=== PATIENT | female | born 1970 | race Two or more races ===

== ENCOUNTER 2024-06-02 08:18 | Outpatient (AMB) | payer OTHER, SELFPAY ==
[2024-06-02 08:46] VITALS: BP 110/72; PULSE 89; RESP 18; TEMP 36.3; O2SAT 97; BMI 38.6
--- NOTE | 2024-06-02 08:46 | PD.ORTHCLVIS ---
Vital signs 06/02/24 08:46 Height 1.57 m Height Method Stated Weight 95.765 kg Weight Measurement Method Standing Scale BMI 38.6 BP 110/72 Blood Pressure Source Automatic Cuff Blood Pressure Location Right Upper Arm Position Sitting Respiration 18 Pulse 89 Pulse Source Monitor Temp 97.3 F Temp Source Temporal Artery Scan Pulse Oximetry (%) 97 Oxygen Delivery Method Room Air Med/Allergies Allergies & Medications Allergies Unable to Assess Allergy (Verified 06/02/24 08:47) Medication Reconciliation atorvastatin 20 mg tablet 20 mg PO QDAY 06/02/24 [History Confirmed 06/02/24] dicyclomine 10 mg capsule 10 mg PO BID 06/02/24 [History Confirmed 06/02/24] furosemide 20 mg tablet 20 mg PO QDAY 06/02/24 [History Confirmed 06/02/24] lisinopril 20 mg tablet 20 mg PO QDAY 06/02/24 [History Confirmed 06/02/24] meloxicam 15 mg tablet 15 mg PO QDAY 06/02/24 [History Confirmed 06/02/24] metformin 500 mg tablet 500 mg PO BID 06/02/24 [History Confirmed 06/02/24] sertraline 150 mg capsule 150 mg PO QDAY 06/02/24 [History Confirmed 06/02/24] Subjective Visit Visit for: new patient and knee Immunization / Flu Flu Vaccine in the Last 12 Months: Yes Flu Vaccine Exclusion Criteria: Already Received History of Present Illness Chief complaint: RIGHT KNEE PAIN Date of injury / onset of symptoms: 3 YEARS Tracey is a pleasant 54-year-old female with right greater than left knee pain. This has been ongoing for several years. She has had 2 arthroscopic meniscectomies in the right and on on the left. She has no recent x-rays. She has had injections in the past with minimal relief. She has tried physical therapy and meloxicam Personal History Occupation: DENTAL HYGIENIST MOBILE COORDINATOR Red flag PMH: BMI and none Pain Pain level (0-10): 6 Pain duration: CONSTANT Pain location: inside (medial), outside (lateral) and anterior Pain quality: sharp and burning Pain timing: night, increases with activity and stairs Associated signs & symptoms: weakness and stiffness Ambulatory data Ambulatory device: none Treatments Number of previous injections: 3 Improvement with previous injections: Yes Number of Physical Therapy sessions: 3 Improvement with PT: No Improvement with NSAIDS: n/a Review of Systems Review of Systems: All systems negative unless otherwise noted in HPI. Exam Exam Patient is in no acute distress and is cooperative with the examination today. Breathing is nonlabored. In no respiratory distress. Bilateral extremities were evaluated and demonstrates sensation intact to light touch. Palpable pedal pulses are present. No significant edema is present. Bilateral hips were examined. The patient has no pain with log roll of the hips. Internal rotation to 30 degrees and external rotation to 30 degrees is painless. Negative FADIR. The left knee was examined. The left knee is in [varus] alignment. Range of motion from [0-115] degrees. Knee is stable to varus and valgus as well as AP translation with <5mm. Patient has a [negative] McMurrays. There is [no] pain with patellofemoral compression and [no] crepitus noted. The knee is [tender] to palpation [medially]. The right knee was also examined. The right knee is in [varus] alignment. Range of motion from [0-120] degrees. Knee is stable to varus and valgus as well as AP translation with <5mm. Patient has a [negative] McMurrays. There is [no] pain with patellofemoral compression and [no] crepitus noted. The knee is [tender] to palpation [medially]. Assessment and Plan Problem List (1) Degenerative arthritis of knee, bilateral: Status: Acute Plan: Patient is a pleasant 54-year-old female with bilateral knee pain and bilateral knee arthritis. We discussed nonoperative and operative options. I would like to get weightbearing x-rays to see the severity of the arthritis. She has failed conservative treatment already. We will discuss different options depending on what the x-rays show Office Procedures GNS Level of Care Nursing/Assessment Patient Status: Established Patient Nursing Assessment/Reassesment: Medication Reconciliation, Update PMH in EMR and Vital Signs Coordination of Care: Complex Care and Chronic Disease 1-5, Education Complex Pt/Fam, Consent,records obtained, informed consent, Results/Orders obtained and Staff clarify orders Special Needs: Language special needs Established Patient Charge Established Patient Point Assignment: 95 Established Patient Point Charge: EP Level 3 (80-115) Past Medical History Past Medical History Have you ever been diagnosed with any of the following: Cardiology Problems Hypercholesterolemia: Yes Hypertension: Yes Respiratory Problems Smoking: No Smoking Exposure: No Endocrine Problems Diabetes Mellitus Type 2: Yes Surgical History Additional Surgical History: 3 MENISCUS REPAIR
== END 2024-06-02 09:05 | disposition home or self-care (01) ==
PROVIDERS: PCP Nurse Practitioner Family; Referring Provider Nurse Practitioner Family; Supervising Provider Orthopaedic Surgery Adult Reconstructive Orthopaedic Surgery; Visit Provider Orthopaedic Surgery Adult Reconstructive Orthopaedic Surgery
DX: M17.0 Bilateral primary osteoarthritis of knee (principal); M25.562 Pain in left knee; M25.561 Pain in right knee; E78.00 Pure hypercholesterolemia, unspecified; I10 Essential (primary) hypertension
CPT/HCPCS: 99213; G0463

== ENCOUNTER 2024-06-12 11:53 | Outpatient (AMB) | payer OTHER, SELFPAY ==
--- NOTE | 2024-06-12 11:41 | PD.ORTHTELE ---
Med/Allergies Allergies & Medications Allergies Unable to Assess Allergy (Verified 06/12/24 11:41) Medication Reconciliation atorvastatin 20 mg tablet 20 mg PO QDAY 06/02/24 [History Confirmed 06/12/24] dicyclomine 10 mg capsule 10 mg PO BID 06/02/24 [History Confirmed 06/12/24] furosemide 20 mg tablet 20 mg PO QDAY 06/02/24 [History Confirmed 06/12/24] lisinopril 20 mg tablet 20 mg PO QDAY 06/02/24 [History Confirmed 06/12/24] meloxicam 15 mg tablet 15 mg PO QDAY 06/02/24 [History Confirmed 06/12/24] metformin 500 mg tablet 500 mg PO BID 06/02/24 [History Confirmed 06/12/24] sertraline 150 mg capsule 150 mg PO QDAY 06/02/24 [History Confirmed 06/12/24] Subjective Visit Visit for: follow up visit, knee (BILATERAL) and x-rays (RESULTS) Immunization / Flu Flu Vaccine in the Last 12 Months: Yes Flu Vaccine Exclusion Criteria: Already Received History of Present Illness Chief complaint: XRAY RESULTS/BILATERAL KNEE Date of injury / onset of symptoms: 3 YEARS Tracey is a pleasant 54-year-old female with right greater than left knee pain. This has been ongoing for several years. She has had 2 arthroscopic meniscectomies in the right and on on the left. She has no recent x-rays. She has had injections in the past with minimal relief. She has tried physical therapy and meloxicam Personal History Occupation: [employer] Red flag PMH: BMI and none Pain Pain level (0-10): 6 Pain duration: CONSTANT Pain location: inside (medial) Pain quality: dull and aching Pain timing: night, increases with activity and stairs Associated signs & symptoms: none Ambulatory data Ambulatory device: none Treatments Number of previous injections: 3 Improvement with previous injections: No Number of Physical Therapy sessions: 3 Improvement with PT: No Improvement with NSAIDS: no Review of Systems Review of Systems: All systems negative unless otherwise noted in HPI. Assessment and Plan Problem List (1) Degenerative arthritis of knee, bilateral: Status: Acute Plan: Patient is a pleasant 54-year-old female with bilateral knee pain and bilateral knee arthritis. We discussed nonoperative and operative options. We discussed that she has severe bilateral knee arthritis. We recommend cortisone injections and nonoperative for now. She would like to get bilateral knee injections at the next visit Office Procedures GNS Level of Care Nursing/Assessment Patient Status: Established Patient Nursing Assessment/Reassesment: Medication Reconciliation, Update PMH in EMR and Vital Signs Coordination of Care: Complex Care and Chronic Disease 1-5, Education Complex Pt/Fam, Consent,records obtained, informed consent, 1 Ins Authorization, Results/Orders obtained and Staff clarify orders Established Patient Charge Established Patient Point Assignment: 110 Telehealth Telemed Phone/Video with patient at home & Dr,PA,INVESTOR RELATIONS MANAGER: Yes
== END 2024-06-12 11:56 | disposition home or self-care (01) ==
LOC: HODSRG 11:53
PROVIDERS: PCP Nurse Practitioner Family; Referring Provider Nurse Practitioner Family; Supervising Provider Orthopaedic Surgery Adult Reconstructive Orthopaedic Surgery; Visit Provider Orthopaedic Surgery Adult Reconstructive Orthopaedic Surgery
DX: M17.0 Bilateral primary osteoarthritis of knee (principal); M25.562 Pain in left knee; M25.561 Pain in right knee
CPT/HCPCS: 99212; G0463

== ENCOUNTER 2024-06-30 10:49 | Outpatient (AMB) | payer OTHER, SELFPAY ==
--- NOTE | 2024-06-30 11:09 | PD.ORTHCLVIS ---
Vital signs 06/30/24 11:16 Height 1.57 m Height Method Stated Weight 97.636 kg Weight Measurement Method Standing Scale BMI 39.6 BP 114/77 Blood Pressure Source Automatic Cuff Blood Pressure Location Right Upper Arm Position Sitting Respiration 18 Pulse 87 Pulse Source Monitor Temp 97.2 F Temp Source Temporal Artery Scan Pulse Oximetry (%) 96 Oxygen Delivery Method Room Air Med/Allergies Allergies & Medications Allergies Unable to Assess Allergy (Verified 06/30/24 11:17) Medication Reconciliation atorvastatin 20 mg tablet 20 mg PO QDAY 06/02/24 [History Confirmed 06/30/24] dicyclomine 10 mg capsule 10 mg PO BID 06/02/24 [History Confirmed 06/30/24] furosemide 20 mg tablet 20 mg PO QDAY 06/02/24 [History Confirmed 06/30/24] lisinopril 20 mg tablet 20 mg PO QDAY 06/02/24 [History Confirmed 06/30/24] meloxicam 15 mg tablet 15 mg PO QDAY 06/02/24 [History Confirmed 06/30/24] metformin 500 mg tablet 500 mg PO BID 06/02/24 [History Confirmed 06/30/24] sertraline 150 mg capsule 150 mg PO QDAY 06/02/24 [History Confirmed 06/30/24] Subjective Visit Visit for: follow up visit, knee (BILATERAL) and x-rays (RESULTS) Immunization / Flu Flu Vaccine in the Last 12 Months: Yes Flu Vaccine Exclusion Criteria: Already Received History of Present Illness Chief complaint: XRAY RESULTS/BILATERAL KNEE Date of injury / onset of symptoms: 3 YEARS Tracey is a pleasant 54-year-old female with right greater than left knee pain. This has been ongoing for several years. She has had 2 arthroscopic meniscectomies in the right and on on the left. She has no recent x-rays. She has had injections in the past with minimal relief. She has tried physical therapy and meloxicam Personal History Occupation: MAIL ROOM CLERK Red flag PMH: BMI and none Pain Pain level (0-10): 6 Pain duration: CONSTANT Pain location: inside (medial) Pain quality: dull and aching Pain timing: night, increases with activity and stairs Associated signs & symptoms: none Ambulatory data Ambulatory device: none Treatments Number of previous injections: 3 Improvement with previous injections: No Number of Physical Therapy sessions: 3 Improvement with PT: No Improvement with NSAIDS: no Review of Systems Review of Systems: All systems negative unless otherwise noted in HPI. Exam Exam Patient is in no acute distress and is cooperative with the examination today. Breathing is nonlabored. In no respiratory distress. Bilateral extremities were evaluated and demonstrates sensation intact to light touch. Palpable pedal pulses are present. No significant edema is present. Bilateral hips were examined. The patient has no pain with log roll of the hips. Internal rotation to 30 degrees and external rotation to 30 degrees is painless. Negative FADIR. The left knee was examined. The left knee is in [varus] alignment. Range of motion from [0-115] degrees. Knee is stable to varus and valgus as well as AP translation with <5mm. Patient has a [negative] McMurrays. There is [no] pain with patellofemoral compression and [no] crepitus noted. The knee is [tender] to palpation [medially]. The right knee was also examined. The right knee is in [varus] alignment. Range of motion from [0-120] degrees. Knee is stable to varus and valgus as well as AP translation with <5mm. Patient has a [negative] McMurrays. There is [no] pain with patellofemoral compression and [no] crepitus noted. The knee is [tender] to palpation [medially]. X-rays Demonstrate significant bilateral knee arthritis with varus deformity and osteophytes. Assessment and Plan Problem List (1) Degenerative arthritis of knee, bilateral: Status: Acute Plan: Patient is a pleasant 54-year-old female with bilateral knee pain and bilateral knee arthritis. We discussed nonoperative and operative options. We discussed that she has severe bilateral knee arthritis. She would like repeat cortisone injections of both knees which I think are reasonable Office Procedures GNS Level of Care Nursing/Assessment Patient Status: Established Patient Nursing Assessment/Reassesment: Medication Reconciliation, Update PMH in EMR and Vital Signs Coordination of Care: Complex Care and Chronic Disease 1-5, Education Complex Pt/Fam, Consent,records obtained, informed consent, Results/Orders obtained and Staff clarify orders Established Patient Charge Established Patient Point Assignment: 95 Established Patient Point Charge: EP Level 3 (80-115) Surgical Proc/IM SQ injection Major Surgical Procedure: Yes Medication Given Medication Given Medication Given: Yes Documented Dose Given: 8 Route: Infiitration Medication Given Medication Given Medication Given: Yes Documented Dose Given: 2 Route: Infiitration Office Meds Xylocaine 10 mg/mL (1 %) injection solution Performing Provider: Nikita Lorenzana MD Performing Location: [facility] Administered by: Nikita Lorenzana MD on 06/30/24 11:18 Dose Route Admin Location Dispensed Lot Number Expiration Date [facility] Treating Plant Supervisor 40 mL Infiltration 40 mL [id number] [facility] triamcinolone acetonide 40 mg/mL suspension for injection Performing Provider: Nikita Lorenzana MD Performing Location: [facility] Administered by: Nikita Lorenzana MD on 06/30/24 11:18 Dose Route Admin Location Dispensed Lot Number Expiration Date [facility] Treating Plant Supervisor 80 mg intra-articular 2 mL [id number] [employer] Past Medical History Past Medical History Have you ever been diagnosed with any of the following: Cardiology Problems Hypercholesterolemia: Yes Hypertension: Yes Respiratory Problems Smoking: No Smoking Exposure: No Endocrine Problems Diabetes Mellitus Type 2: Yes
[2024-06-30 11:16] VITALS: BP 114/77; PULSE 87; RESP 18; TEMP 36.2; O2SAT 96; BMI 39.6
== END 2024-06-30 11:21 | disposition home or self-care (01) ==
LOC: HODSRG 10:49
PROVIDERS: PCP Nurse Practitioner Family; Referring Provider Nurse Practitioner Family; Supervising Provider Orthopaedic Surgery Adult Reconstructive Orthopaedic Surgery; Visit Provider Orthopaedic Surgery Adult Reconstructive Orthopaedic Surgery
DX: M17.0 Bilateral primary osteoarthritis of knee (principal); M25.562 Pain in left knee; M25.561 Pain in right knee; I10 Essential (primary) hypertension; E78.00 Pure hypercholesterolemia, unspecified
CPT/HCPCS: 20610; 99213; J3301; J3490; G0463

== ENCOUNTER 2024-10-09 13:14 | Outpatient (AMB) | payer OTHER, SELFPAY ==
[2024-10-09 13:37] VITALS: BP 82/56; PULSE 91; RESP 18; TEMP 36.4; O2SAT 96; BMI 37.0
--- NOTE | 2024-10-09 13:37 | ORTHONT_ITS ---
Vital signs 10/09/24 13:37 Height 1.57 m Height Method Stated Weight 91.172 kg Weight Measurement Method Standing Scale BMI 37.0 BP 82/56 L Blood Pressure Source Automatic Cuff Blood Pressure Location Right Upper Arm Position Sitting Respiration 18 Pulse 91 Pulse Source Monitor Temp 97.5 F Temp Source Temporal Artery Scan Pulse Oximetry (%) 96 Oxygen Delivery Method Room Air Med/Allergies Allergies & Medications Allergies Unable to Assess Allergy (Verified 10/09/24 13:38) Medication Reconciliation atorvastatin 20 mg tablet 20 mg PO QDAY 06/02/24 [History Confirmed 10/09/24] dicyclomine 10 mg capsule 10 mg PO BID 06/02/24 [History Confirmed 10/09/24] furosemide 20 mg tablet 20 mg PO QDAY 06/02/24 [History Confirmed 10/09/24] lisinopril 20 mg tablet 20 mg PO QDAY 06/02/24 [History Confirmed 10/09/24] meloxicam 15 mg tablet 15 mg PO QDAY 06/02/24 [History Confirmed 10/09/24] metformin 500 mg tablet 500 mg PO BID 06/02/24 [History Confirmed 10/09/24] sertraline 150 mg capsule 150 mg PO QDAY 06/02/24 [History Confirmed 10/09/24] Exam Exam Patient is in no acute distress and is cooperative with the examination today. Breathing is nonlabored. In no respiratory distress. Bilateral extremities were evaluated and demonstrates sensation intact to light touch. Palpable pedal pulses are present. No significant edema is present. Bilateral hips were examined. The patient has no pain with log roll of the hips. Internal rotation to 30 degrees and external rotation to 30 degrees is painless. Negative FADIR. The left knee was examined. The left knee is in [varus] alignment. Range of motion from [0-115] degrees. Knee is stable to varus and valgus as well as AP translation with <5mm. Patient has a [negative] McMurrays. There is [no] pain with patellofemoral compression and [no] crepitus noted. The knee is [tender] to palpation [medially]. The right knee was also examined. The right knee is in [varus] alignment. Range of motion from [0-120] degrees. Knee is stable to varus and valgus as well as AP translation with <5mm. Patient has a [negative] McMurrays. There is [no] pain with patellofemoral compression and [no] crepitus noted. The knee is [tender] to palpation [medially]. X-rays Demonstrate significant bilateral knee arthritis with varus deformity and osteophytes. Assessment and Plan Problem List (1) Degenerative arthritis of knee, bilateral: Status: Acute Plan: Patient is a pleasant 54-year-old female with bilateral knee pain and bilateral knee arthritis. We discussed nonoperative and operative options. We discussed that she has severe bilateral knee arthritis. She would like repeat cortisone injections of both knees which I think are reasonable Recommend knee cortisone injections as patient would like to proceed with con servative treatment at this time. The risks and benefits of the procedure were reviewed with the patient and patient gave verbal consent to continue with the procedure. Procedure: performed by Dr. Lorenzana Using sterile technique the Bilateral knees were thoroughly prepped with alcohol, and approximately 1 cc of Kenalog 40 mg/mL and 4 cc of 1% lidocaine was injected into each knee without resistance into the medial tibial femoral joint space. The patient tolerated the procedure. Office Procedures GNS Level of Care Nursing/Assessment Patient Status: Established Patient Nursing Assessment/Reassesment: Medication Reconciliation, Update PMH in EMR and Vital Signs Coordination of Care: Complex Care and Chronic Disease 1-5, Education Complex Pt/Fam, Consent,records obtained, informed consent, Results/Orders obtained and Staff clarify orders Established Patient Charge Established Patient Point Assignment: 95 Established Patient Point Charge: EP Level 3 (80-115) Surgical Proc/IM SQ injection Major Surgical Procedure: Yes (KNEE INJECTIONS ) Medication Given Medication Given Medication Given: Yes Documented Dose Given: 8 Route: Infiitration Medication Given Medication Given Medication Given: Yes Documented Dose Given: 2 Route: Infiitration Office Meds Xylocaine 10 mg/mL (1 %) injection solution Performing Provider: Nikita Lorenzana MD Performing Location: [facility] Administered by: Nikita Lorenzana MD on 10/09/24 14:26 Dose Route Admin Location Dispensed Lot Number Expiration Date [facility] Chain Saw Driver 40 mL Infiltration 40 mL [id number] [facility] triamcinolone acetonide 40 mg/mL suspension for injection Performing Provider: Nikita Lorenzana MD Performing Location: [facility] Administered by: Nikita Lorenzana MD on 10/09/24 14:26 Dose Route Admin Location Dispensed Lot Number Expiration Date [facility] Chain Saw Driver 80 mg intra-articular 2 mL [id number] [employer] [place] Intake Visit Data Collection New Patient or Established: Established Patient (seen at [facility] within 3 years) Reason for Visit:: 3 MONTHS FOLLOW UP Seen by Clinical Staff ONLY (RN/MA): No Verbal consent obtained for Telemed visit?: No Real Estate Professor Required: No PCP or OBGYN visit in last 3 months: Yes Hx Now: No Do You Feel Safe at Home: Yes Authorities Contacted: N/A Questionairres Past Medical History Past Medical History Have you ever been diagnosed with any of the following: Cardiology Problems Hypercholesterolemia: Yes Hypertension: Yes Respiratory Problems Smoking: No Smoking Exposure: No Endocrine Problems Diabetes Mellitus Type 2: Yes Subjective Visit Visit for: follow up visit and knee Immunization / Flu Flu Vaccine in the Last 12 Months: No Flu Vaccine Exclusion Criteria: Refused by Patient and No Exclusion Criteria History of Present Illness Chief complaint: F/U ON KNEE INJECTIONS Patient is doing well with bilateral knee injections. They are working for 3 months and would want new ones today. Pain Pain level (0-10): 5 Pain duration: ALL DAY Pain location: inside (medial), outside (lateral), anterior and posterior Pain quality: sharp, dull and aching Pain timing: increases with activity Associated signs & symptoms: none Ambulatory data Ambulatory device: none Treatments Number of previous injections: 2 Improvement with previous injections: Yes Improvement with PT: No Improvement with NSAIDS: no Review of Systems Review of Systems: All systems negative unless otherwise noted in HPI.
== END 2024-10-09 14:00 | disposition home or self-care (01) ==
LOC: HODSRG 13:14
PROVIDERS: PCP Nurse Practitioner Family; Referring Provider Nurse Practitioner Family; Supervising Provider Orthopaedic Surgery Adult Reconstructive Orthopaedic Surgery; Visit Provider Orthopaedic Surgery Adult Reconstructive Orthopaedic Surgery
DX: M17.0 Bilateral primary osteoarthritis of knee (principal); E78.00 Pure hypercholesterolemia, unspecified; I10 Essential (primary) hypertension
CPT/HCPCS: 20610; 99213; J3301; J3490; G0463

== ENCOUNTER 2025-01-07 13:40 | Outpatient (AMB) | payer OTHER, SELFPAY ==
--- NOTE | 2025-01-07 14:10 | PD.ORTHCLVIS ---
Vital signs 01/07/25 14:18 Height 1.57 m Height Method Stated Weight 88.564 kg Weight Measurement Method Standing Scale BMI 35.9 BP 113/82 Blood Pressure Source Automatic Cuff Blood Pressure Location Left Upper Arm Position Sitting Respiration 19 Pulse 79 Pulse Source Monitor Temp 96.2 F L Temp Source Temporal Artery Scan Pulse Oximetry (%) 96 Oxygen Delivery Method Room Air Med/Allergies Allergies & Medications Allergies Unable to Assess Allergy (Verified 01/07/25 14:19) Medication Reconciliation atorvastatin 20 mg tablet 20 mg PO QDAY 06/02/24 [History Confirmed 01/07/25] dicyclomine 10 mg capsule 10 mg PO BID 06/02/24 [History Confirmed 01/07/25] furosemide 20 mg tablet 20 mg PO QDAY 06/02/24 [History Confirmed 01/07/25] lisinopril 20 mg tablet 20 mg PO QDAY 06/02/24 [History Confirmed 01/07/25] meloxicam 15 mg tablet 15 mg PO QDAY 06/02/24 [History Confirmed 01/07/25] metformin 500 mg tablet 500 mg PO BID 06/02/24 [History Confirmed 01/07/25] sertraline 150 mg capsule 150 mg PO QDAY 06/02/24 [History Confirmed 01/07/25] Exam Exam Patient is in no acute distress and is cooperative with the examination today. Breathing is nonlabored. In no respiratory distress. Bilateral extremities were evaluated and demonstrates sensation intact to light touch. Palpable pedal pulses are present. No significant edema is present. Bilateral hips were examined. The patient has no pain with log roll of the hips. Internal rotation to 30 degrees and external rotation to 30 degrees is painless. Negative FADIR. The left knee was examined. The left knee is in [varus] alignment. Range of motion from [0-115] degrees. Knee is stable to varus and valgus as well as AP translation with <5mm. Patient has a [negative] McMurrays. There is [no] pain with patellofemoral compression and [no] crepitus noted. The knee is [tender] to palpation [medially]. The right knee was also examined. The right knee is in [varus] alignment. Range of motion from [0-120] degrees. Knee is stable to varus and valgus as well as AP translation with <5mm. Patient has a [negative] McMurrays. There is [no] pain with patellofemoral compression and [no] crepitus noted. The knee is [tender] to palpation [medially]. X-rays Demonstrate significant bilateral knee arthritis with varus deformity and osteophytes. Assessment and Plan Problem List (1) Degenerative arthritis of knee, bilateral: Status: Acute Plan: Patient is a pleasant 54-year-old female with bilateral knee pain and bilateral knee arthritis. We discussed nonoperative and operative options. We discussed that she has severe bilateral knee arthritis. She would like repeat cortisone injections of both knees which I think are reasonable Recommend knee cortisone injections as patient would like to proceed with conservative treatment at this time. The risks and benefits of the procedure were reviewed with the patient and patient gave verbal consent to continue with the procedure. Procedure: performed by Dr. Lorenzana Using sterile technique the Bilateral knees were thoroughly prepped with alcohol, and approximately 1 cc of Kenalog 40 mg/mL and 4 cc of 1% lidocaine was injected into each knee without resistance into the medial tibial femoral joint space. The patient tolerated the procedure. Office Procedures GNS Level of Care Nursing/Assessment Patient Status: Established Patient Nursing Assessment/Reassesment: Medication Reconciliation, Update PMH in EMR and Vital Signs Coordination of Care: Complex Care and Chronic Disease 1-5, Education Complex Pt/Fam, Consent,records obtained, informed consent, Results/Orders obtained and Staff clarify orders Established Patient Charge Established Patient Point Assignment: 95 Established Patient Point Charge: EP Level 3 (80-115) Surgical Proc/IM SQ injection Major Surgical Procedure: Yes (BILATERAL KNEE INJECTION) Medication Given Medication Given Medication Given: Yes Documented Dose Given: 4 Route: Infiitration Medication Given Medication Given Medication Given: Yes Documented Dose Given: 1 Route: Infiitration Office Meds Xylocaine 10 mg/mL (1 %) injection solution Performing Provider: Nikita Lorenzana MD Performing Location: [facility] Administered by: Nikita Lorenzana MD on 01/07/25 14:19 Dose Route Admin Location Dispensed Lot Number Expiration Date [facility] [employer] 40 mL Infiltration 40 mL [id number] 11/19/27 73191-245-[facility] triamcinolone acetonide 40 mg/mL suspension for injection Performing Provider: Nikita Lorenzana MD Performing Location: [facility] Administered by: Nikita Lorenzana MD on 01/07/25 14:19 Dose Route Admin Location Dispensed Lot Number Expiration Date [facility] [employer] 80 mg intra-articular 2 mL [id number] 02/17/26 56321-819-70 ATA CASTAÑEDA [place] Intake Visit Data Collection New Patient or Established: Established Patient (seen at [facility] within 3 years) Seen by Clinical Staff ONLY (RN/MA): No PCP or OBGYN visit in last 3 months: Yes Hx Now: No Do You Feel Safe at Home: Yes Authorities Contacted: N/A Questionairres Past Medical History Past Medical History Have you ever been diagnosed with any of the following: Cardiology Problems Hypercholesterolemia: Yes Hypertension: Yes Respiratory Problems Smoking: No Smoking Exposure: No Endocrine Problems Diabetes Mellitus Type 2: Yes Subjective Visit Visit for: follow up visit and knee Immunization / Flu Flu Vaccine in the Last 12 Months: No Flu Vaccine Exclusion Criteria: Refused by Patient and No Exclusion Criteria History of Present Illness Chief complaint: F/U ON KNEE INJECTIONS Patient is doing well with bilateral knee injections. They are working for 3 months and would want new ones today. Pain Pain level (0-10): 5 Pain duration: ALL DAY Pain location: inside (medial), outside (lateral), anterior and posterior Pain quality: sharp, dull and aching Pain timing: increases with activity Associated signs & symptoms: none Ambulatory data Ambulatory device: none Treatments Number of previous injections: 2 Improvement with previous injections: Yes Improvement with PT: No Improvement with NSAIDS: no Review of Systems Review of Systems: All systems negative unless otherwise noted in HPI.
[2025-01-07 14:18] VITALS: BP 113/82; PULSE 79; RESP 19; TEMP 35.7; O2SAT 96; BMI 35.9
== END 2025-01-07 14:14 | disposition home or self-care (01) ==
LOC: HODSRG 13:40
PROVIDERS: PCP Nurse Practitioner Family; Referring Provider Nurse Practitioner Family; Supervising Provider Orthopaedic Surgery Adult Reconstructive Orthopaedic Surgery; Visit Provider Orthopaedic Surgery Adult Reconstructive Orthopaedic Surgery
DX: M17.0 Bilateral primary osteoarthritis of knee (principal); M25.562 Pain in left knee; M25.561 Pain in right knee; I10 Essential (primary) hypertension; E78.00 Pure hypercholesterolemia, unspecified; E11.9 Type 2 diabetes mellitus without complications
CPT/HCPCS: 20610; 99213; J3301; J3490; G0463

== ENCOUNTER 2025-04-22 13:12 | Outpatient (AMB) | payer OTHER, SELFPAY ==
--- NOTE | 2025-04-22 13:38 | ORTHONT_ITS ---
Vital signs 04/22/25 13:40 Height 1.57 m Height Method Stated Weight 88.139 kg Weight Measurement Method Standing Scale BMI 35.7 BP 97/63 Blood Pressure Source Automatic Cuff Blood Pressure Location Left Upper Arm Position Sitting Respiration 20 Pulse 117 H Pulse Source Monitor Temp 95.6 F L Temp Source Temporal Artery Scan Pulse Oximetry (%) 94 L Oxygen Delivery Method Room Air Med/Allergies Allergies & Medications Allergies Unable to Assess Allergy (Verified 01/07/25 14:19) Exam Exam Patient is in no acute distress and is cooperative with the examination today. Breathing is nonlabored. In no respiratory distress. Bilateral extremities were evaluated and demonstrates sensation intact to light touch. Palpable pedal pulses are present. No significant edema is present. Bilateral hips were examined. The patient has no pain with log roll of the hips. Internal rotation to 30 degrees and external rotation to 30 degrees is painless. Negative FADIR. The left knee was examined. The left knee is in [varus] alignment. Range of motion from [0-115] degrees. Knee is stable to varus and valgus as well as AP translation with <5mm. Patient has a [negative] McMurrays. There is [no] pain with patellofemoral compression and [no] crepitus noted. The knee is [tender] to palpation [medially]. The right knee was also examined. The right knee is in [varus] alignment. Range of motion from [0-120] degrees. Knee is stable to varus and valgus as well as AP translation with <5mm. Patient has a [negative] McMurrays. There is [no] pain with patellofemoral compression and [no] crepitus noted. The knee is [tender] to palpation [medially]. X-rays Demonstrate significant bilateral knee arthritis with varus deformity and osteophytes. Assessment and Plan Problem List (1) Degenerative arthritis of knee, bilateral: Status: Acute Plan: Patient is a pleasant 54-year-old female with bilateral knee pain and bilateral knee arthritis. We discussed nonoperative and operative options. We discussed that she has severe bilateral knee arthritis. She would like repeat cortisone injections of both knees which I think are reasonable Recommend knee cortisone injection as patient would like to proceed with conservative treatment at this time. The risks and benefits of the procedure were reviewed with the patient and patient gave verbal consent to continue with the procedure. Procedure: performed by Dr. Lorenzana Using sterile technique the Right knee was thoroughly prepped with alcohol, and approximately 1 cc of Depo-Medrol 80mg/mL and 4 cc of 0.2% ropivacaine was injected without resistance into the medial tibial femoral joint space. The patient tolerated the procedure. Recommend knee cortisone injection as patient would like to proceed with conservative treatment at this time. The risks and benefits of the procedure were reviewed with the patient and patient gave verbal consent to continue with the procedure. Procedure: performed by Dr. Lorenzana Using sterile technique the leftknee was thoroughly prepped with alcohol, and approximately 1 cc of Depo- Medrol 80mg/mL and 4 cc of 0.2% ropivacaine was injected without resistance into the medial tibial femoral joint space. The patient tolerated the procedure. Office Procedures GNS Level of Care Nursing/Assessment Patient Status: Established Patient Nursing Assessment/Reassesment: Medication Reconciliation, Update PMH in EMR and Vital Signs Coordination of Care: Complex Care and Chronic Disease 1-5, Education Complex Pt/Fam, Consent,records obtained, informed consent, Results/Orders obtained and Staff clarify orders Established Patient Charge Established Patient Point Assignment: 95 Established Patient Point Charge: EP Level 3 (80-115) Surgical Proc/IM SQ injection Minor Surgical Procedure: Yes (BILATERAL KNEE INJECTION) Medication Given Medication Given Medication Given: Yes Documented Dose Given: 1 Route: Infiitration Medication Given Medication Given Medication Given: Yes Documented Dose Given: 1 Route: Infiitration Medication Given Medication Given Medication Given: Yes Documented Dose Given: 4 Route: Infiitration Medication Given Medication Given Medication Given: Yes Documented Dose Given: 4 Route: Infiitration Office Meds methylprednisolone acetate 80 mg/mL suspension for injection Performing Provider: Nikita Lorenzana MD Performing Location: [facility] Administered by: Nikita Lorenzana MD on 04/22/25 14:07 Dose Route Admin Location Dispensed Lot Number Expiration Date Pack age [facility] [employer] 80 mg intra-articular KNEE 1 mL [id number] 01/18/27 [address]-9 7 [id number] [employer] methylprednisolone acetate 80 mg/mL suspension for injection Performing Provider: Nikita Lorenzana MD Performing Location: [facility] Administered by: Nikita Lorenzana MD on 04/22/25 14:07 Dose Route Admin Location Dispensed Lot Number Expiration Date Pack age [facility] [employer] 80 mg intra-articular KNEE 1 mL [id number] 01/18/27 [address]-0 7 [id number] [employer] ropivacaine (PF) 2 mg/mL (0.2 %) injection solution Performing Provider: Nikita Lorenzana MD Performing Location: [facility] Administered by: Nikita Lorenzana MD on 04/22/25 14:07 Dose Route Admin Location Dispensed Lot Number Expiration Date Pack age [facility] [employer] Hand 20 mL Infiltration KNEE 20 mL [id number] 08/21/27 49976-642-36 [id number] [facility] ropivacaine (PF) 2 mg/mL (0.2 %) injection solution Performing Provider: Nikita Lorenzana MD Performing Location: [facility] Administered by: Nikita Lorenzana MD on 04/22/25 14:07 Dose Route Admin Location Dispensed Lot Number Expiration Date Pack age [facility] [employer] 20 mL Infiltration KNEE 20 mL [id number] 08/21/27 70373-310-36 [id number] [facility] Intake Visit Data Collection New Patient or Established: Established Patient (seen at [facility] within 3 years) Seen by Clinical Staff ONLY (RN/MA): No PCP or OBGYN visit in last 3 months: Yes Hx Now: No Do You Feel Safe at Home: Yes Authorities Contacted: N/A Questionairres Past Medical History Past Medical History Have you ever been diagnosed with any of the following: Cardiology Problems Hypercholesterolemia: Yes Hypertension: Yes Respiratory Problems Smoking: No Smoking Exposure: No Endocrine Problems Diabetes Mellitus Type 2: Yes Subjective Visit Visit for: follow up visit and knee Immunization / Flu Flu Vaccine in the Last 12 Months: No Flu Vaccine Exclusion Criteria: Refused by Patient and No Exclusion Criteria History of Present Illness Chief complaint: F/U ON KNEE INJECTIONS Patient is doing well with bilateral knee injections. They are working for 3 months and would want new ones today. Pain Pain level (0-10): 5 Pain duration: ALL DAY Pain location: inside (medial), outside (lateral), anterior and posterior Pain quality: sharp, dull and aching Pain timing: increases with activity Associated signs & symptoms: none Ambulatory data Ambulatory device: none Treatments Number of previous injections: 2 Improvement with previous injections: Yes Improvement with PT: No Improvement with NSAIDS: no Review of Systems Review of Systems: All systems negative unless otherwise noted in HPI.
[2025-04-22 13:40] VITALS: BP 97/63; PULSE 117; RESP 20; TEMP 35.3; O2SAT 94; BMI 35.7
== END 2025-04-22 13:43 | disposition home or self-care (01) ==
LOC: HODSRG 13:12
PROVIDERS: PCP Nurse Practitioner Family; Referring Provider Nurse Practitioner Family; Supervising Provider Orthopaedic Surgery Adult Reconstructive Orthopaedic Surgery; Visit Provider Orthopaedic Surgery Adult Reconstructive Orthopaedic Surgery
DX: M17.0 Bilateral primary osteoarthritis of knee (principal); M25.562 Pain in left knee; M25.561 Pain in right knee; I10 Essential (primary) hypertension
CPT/HCPCS: 20610; 99213; J1010; J2795; G0463